=== PATIENT | female | born 1950 | race Two or more races ===

== ENCOUNTER 2021-04-07 13:47 | Emergency (ER) | payer OTHER ==
[~2021-04-07] VITALS: Ht 157.5 cm; Wt 65.8 kg
[~2021-04-07 13:47] MED LIST: CATAFLAM50 MG PO; NORFLEX100 MG PO
== END 2021-04-07 15:27 | disposition home or self-care (01) ==
LOC: ER 13:47
DX: J06.9 Acute upper respiratory infection, unspecified (principal)

== ENCOUNTER 2022-12-25 10:19 | Outpatient (CLI) | payer OTHER | END 2022-12-25 10:24 | disposition home or self-care (01) | LOC: RAD 10:19 | PROVIDERS: ATTEND Internal Medicine Pulmonary Disease | DX: J45.30 Mild persistent asthma, uncomplicated (principal) ==